=== PATIENT | female | born 1990 | race African-American/Black ===

== ENCOUNTER 2018-09-08 19:24 | Emergency (ER) | payer OTHER ==
[~2018-09-08] VITALS: Ht 165.1 cm; Wt 113.4 kg
[~2018-09-08 19:24] MED LIST: NAPROSYN500 MG PO
[2018-09-08 19:39] VITALS: BP 158/98
[2018-09-08] MEDS ORDERED: PREDNISONE 20 M20 M1 PO (20:16)
[2018-09-08] MEDS ORDERED: MAGIC MOUTHWASH SW&SWALLOW (20:16)
[2018-09-08] MEDS ORDERED: AMOXICILLIN 50500 MG PO (20:16)
== END 2018-09-08 20:35 | disposition home or self-care (01) ==
LOC: ER 19:24
DX: J03.90 Acute tonsillitis, unspecified (principal); H66.92 Otitis media, unspecified, left ear